=== PATIENT | male | born 1955 | race Caucasian/White ===

== ENCOUNTER 2019-04-13 23:47 | Inpatient (IN) ==
[2019-04-14] MEDS ORDERED: ZOFRAN IV ONE (00:10)
[2019-04-14] MEDS ORDERED: NS 1,000 ML IV ONE ×4 (00:10→06:38)
[2019-04-14] MEDS ORDERED: D50W SYRINGE IV ONE ×2 (00:10→06:37)
[2019-04-14] MEDS ORDERED: FLEXERIL PO ONE (00:46)
[2019-04-14 00:53] LABS: BASO# 0.01 X1000 (0.0-0.2); HEMATOCRIT 43.1 % (42.0-52.0); HEMOGLOBIN 14.1 g/dL (14.0-18.0); IMM GRAN# 0.08 X1000 (0.0-0.04); IMM GRAN% 0.3 % (0.0-0.5); LYMPH# 1.81 X1000 (1.2-3.4); LYMPH% 7.6 % (20.5-51.1); MCH 28.5 PG (27-31); MCHC 32.7 g/dL (33-37); MCV 87.2 FL (81-99); MONO# 2.22 X1000 (0.11-0.59); MONO% 9.3 % (1.7-9.3); MPV 9.7 FL (7.4-10.4); NEUT# 19.79 X1000 (1.4-6.5); NEUT% 82.8 % (42.2-75.2); PLT 317 X1000 (130-400); RBC 4.94 XMIL (4.7-6.1); RDW 14.1 % (11.5-14.5); WBC 23.91 X1000 (4.8-10.8)
[2019-04-14] MEDS ORDERED: ZOSYN 4.5 GM in NS 100 ML IV ONE (01:01)
[2019-04-14 01:33] LABS: ALBUMIN 4.7 g/dL (3.5-5.0); CREATININE 1.4 mg/dL (0.7-1.2); MAGNESIUM 1.5 mg/dL (1.5-2.7); POTASSIUM 3.3 mmol/L (3.5-5.1); TOTAL BILIRUBIN 0.3 mg/dL (0.20-1.00); TOTAL PROTEIN 8.3 g/dL (6.3-8.3)
[2019-04-14] MEDS ORDERED: NS 500 ML IV ONE (02:34)
[2019-04-14 03:50] LABS: URINE SOURCE CATH
[2019-04-14 04:11] LABS: BILIRUBIN URINE NEGATIVE (NEGATIVE); BLOOD URINE NEGATIVE (NEGATIVE); COLOR YELLOW; GLUCOSE URINE TRACE mg/dL (NEGATIVE); KETONE URINE NEGATIVE (NEGATIVE); LEUKOCYTES URINE NEGATIVE (NEGATIVE); NITRITE URINE NEGATIVE (NEGATIVE); PH URINE 5.5; PROTEIN URINE 30 mg/dL (NEGATIVE); SP GRAVITY URINE 1.036; TURBIDITY URINE CLEAR (CLEAR); UROBILINOGEN URINE NORMAL (NORMAL)
[2019-04-14 04:12] LABS: UR EPITHELIAL CELLS <10 /HPF (<10); URINE RBC <10 /HPF (<10); URINE WBC <10 /HPF (<10)
[2019-04-14 05:40] LABS: URINE BACTERIA 1+ /HPF; URINE CASTS NONE SEEN; URINE CRYSTALS NONE SEEN; URINE SMALL ROUND CELLS NONE SEEN; URINE YEAST NONE SEEN
[2019-04-14] MEDS ORDERED: ZOFRAN ODT PO PRN (06:34)
[2019-04-14] MEDS ORDERED: TYLENOL PO PRN (06:34)
--- NOTE | 2019-04-14 06:34 | PROVIDER DOCUMENTATION ---
This chart was entered by Asha Thomas Scribe, acting as scribe for Joni Wilkins MD. HPI-Abdominal Pain/GI Problem - General Chief Complaint: Low Blood Sugar Stated Complaint: Hypoglycemia Time Seen by Provider: 04/14/19 00:03 Source: patient Allergies/Adverse Reactions: Patient Allergies Allergy/AdvReac Type Severity Reaction Status Date / Time No Known Allergies Allergy Verified 01/02/17 21:51 Home Medications: Home Medication List Medication Instructions Recorded Confirmed Last Taken Type Alprazolam 1 mg PO TID PRN PRN 01/02/17 01/02/17 Unknown History Canagliflozin [Invokana] 300 mg PO DAILY 01/02/17 01/02/17 Unknown History Desvenlafaxine [Desvenlafaxine ER] 50 mg PO DAILY 01/02/17 01/02/17 Unknown History Hydrocodone/Acetaminophen [[place] 1 each PO Q4-6H PRN PRN #12 tablet 01/02/17 Unknown Rx 5-325 Tablet] Insulin Glargine,Hum.rec.anlog 55 units SQ QHS 01/02/17 01/02/17 Unknown History [Lantus] Insulin Lispro [Humalog] 40 units SQ DIRECTED 01/02/17 01/02/17 Unknown History Lisinopril 10 mg PO DAILY 01/02/17 01/02/17 Unknown History Meloxicam 15 mg PO DAILY 01/02/17 01/02/17 Unknown History Metformin HCl 2,000 mg PO DAILY 01/02/17 01/02/17 Unknown History Naproxen [Naprosyn] 500 mg PO BID 01/02/17 01/02/17 Unknown History Pantoprazole [Protonix] 40 mg PO DAILY 01/02/17 01/02/17 Unknown History Simvastatin 20 mg PO DAILY 01/02/17 01/02/17 Unknown History - History of Present Illness-ABD Nature of Presenting Problems: pt is a 63 yr old male presenting with complaint of sudden onset abdominal pain, nausea vomiting and diarrhea. pt reports onset after eating supper and taking his nightly insulin dose. pt reports vomited x 4, diarrhea x 3 in less than 1 hour, pt reports he was weak, diaphoretic and having cramping to extremities, BGL was 30 upon checking, oral glucose given by EMS and pt then brought him to ER. pt denies any sick contacts, pt and ate same thing for supper tonight. pt denies any other complaints. Abdominal Pain Onset Location: reports: generalized abdomen Pain Radiation: reports: no radiation Quality of Pain: reports: cramping Severity in ED: reports: severe Onset/Duration: reports: 1-3 hours ago, this evening Timing: reports: improving Activities at Onset: reports: light activity Exposure to sick contacts?: No Modifying Factors: improves with: nothing Associated Symptoms: reports: diaphoresis, diarrhea, dizziness, fatigue, muscle aches, nausea, shortness of breath, vomiting, weakness. denies: chest pain, genitourinary problems Last BM: this evening Dark Stools Present?: reports: none noticed Rectal Bleeding: reports: none # of Diarrhea Episodes: 3 # of Vomiting Episodes: 4 Bruising or Bleeding Gums?: No Similar Symptoms Previously?: No Recently seen or treated by another doctor?: No Review of Systems - Adult - REVIEW OF SYSTEMS - ADULT Constitutional: reports: chills, fatique. denies: fever Eyes: reports: no symptoms reported Ears, Nose, Mouth & Throat: denies: ear pain, sinus problem, throat pain Cardiovascular: denies: chest pain, palpitations, syncope Respiratory: denies: shortness of breath Gastrointestinal: reports: abdominal pain, diarrhea, nausea, vomiting Genitourinary: denies: dysuria, frequency, flank pain Musculoskeletal: reports: other (muscle cramping, all extremities). denies: back pain Integumentary: reports: no symptoms reported Neurological: denies: dizziness/vertigo, headache/migraines, syncope Psychiatric: reports: no symptoms reported Endocrine: reports: no symptoms reported Hematologic/Lymphatic: reports: no symptoms reported Allergic/Immunologic: reports: no symptoms reported All Other Systems: Reviewed and Negative Past History - Adult - PAST MEDICAL HISTORY-ADULT Review of Records: reports: Old Records Reviewed, Nursing Assessment Review, Medications Reviewed, Social history reviewed & non-contributory. Major Childhood Illnesses: reports: denies history Cardiovascular: reports: denies history Respiratory: reports: denies history Gastrointestinal: reports: denies history Obstetrical/Gynecological: reports: denies history Genitourinary: reports: denies history Musculoskeletal: reports: denies history Neurological: reports: denies history Endocrine/Immune: reports: denies history Other Conditions: reports: denies history - IMMUNIZATION STATUS Childhood Immunizations: See Nurse Assessment Flu Vaccine: See Nurse Assessment - FAMILY HISTORY Family History: reviewed, not pertinent - SOCIAL HISTORY Smoking: cigarettes, greater than 1 pack/day Provider spent 3-5 mins advising pt. on dangers of tobacco.: Discussed manners to quit use, and f/u contacts for add'l counseling. Substance Use: denies Living Situation: family Physical Exam-General - PHYSICAL EXAM-ADULT Initial Vital Signs Reviewed: Yes - CONSTITUTIONAL General Appearance: alert, no apparent distress, obese - EYES Eyes: PERRL/EOMI - HEAD, EARS, NOSE, MOUTH & THROAT HENMT: normocephalic/atraumatic, moist mucous membranes, normal ENT inspection - NECK Neck: non-tender, full range of motion, supple, normal inspection - RESPIRATORY Respiratory: chest non-tender, lungs clear, normal breath sounds, no respiratory distress, no accessory muscle use - CARDIOVASCULAR Cardiovascular: normal peripheral pulses, regular rate, rhythm, no edema - GASTROINTESTINAL (ABDOMEN) Abdominal Exam: normal bowel sounds, non tender, soft - LYMPHATIC Lymphatic: no adenopathy - MUSCULOSKELETAL Back Exam: normal inspection, no CVA tenderness, no vertebral tenderness Extremity: normal range of motion, non-tender, normal inspection - SKIN Integumentary: diaphoresis, pallor - NEUROLOGIC Neurologic: grossly normal, no motor/sensory deficits - PSYCHIATRIC Psych/Mental Status: normal mood/affect Progress - PLAN OF CARE/RESULTS Progress/Plan/Lab Results: Vital Signs - 8 hr 04/13/19 23:52 Pulse Rate 89 Respiratory Rate 18 Blood Pressure 89/58 O2 Sat by Pulse Oximetry 96 Laboratory Results - last 24 hr 04/14/19 00:02 POC Glucose 63 L Result Diagrams: 04/14/19 00:08 04/14/19 00:08 - REASSESSMENT Reassessment #1 Time Reassessed: 06:32 Status: improving (Patient responded to 30ml/kg of IVF bolus. Given zosyn for GI cause of sepsis. Given 1/2 am D50. States feels much better.) - CT/MRI 1 CT Study: Abdomen Impression: Abnormal (Per [facility]: 1. Moderate sliding hiatal hernia. 2. Bladder Wall thickening suggestive of cystitis and/or chronic partial outlet obstruciton, 3. moderate prostate enlargement) - CONSULTS/PCP/HOSPITALIST Notification #1 *Consult/PCP/Hospitalist*: Enrique paged, 4:15, 4:34, 05:01, 0600, no return of page #2 Consult: Meliton Time Discussed: 06:20 Consult Disposition: Admit Departure - Departure Date of Disposition Decision: 04/14/19 Time of Disposition Decision: 06:33 DIAGNOSIS: Nausea vomiting and diarrhea, Severe sepsis, Cystitis Hypotension Qualifiers: Hypotension type: hypotension due to hypovolemia Qualified Code(s): I95.89 - Other hypotension; E86.1 - Hypovolemia Type 2 diabetes mellitus with hypoglycemia without coma Qualifiers: Diabetes mellitus custodial insulin use: with custodial use Qualified Code(s): E11.649 - Type 2 diabetes mellitus with hypoglycemia without coma; Z79.4 - USP (current) use of insulin Disposition: ADMITTED INPATIENT 09 Certified Medical Emergency: Emergent Condition: Fair Referrals and Follow-Ups: Long Nunez MD [Primary Care Provider] - - Critical Care Note This patient required my direct & personal management of CC.: Yes Attestation - Physician/ CHELSEA Attestation Patient care was provided by Advanced Practice Provider:: No The physician spent face to face time with patient:: Yes Advanced Practice Provider documentation review:: Supervising physician onsite and consulted in the evaluation and care of this patient. The physician did have a face to face encounter with the patient. This chart was documented by the indicated scribe, (Asha Thomas Scribe) and accurately reflects the services I performed and decisions made by me, Joni Wilkins MD, as attested by the provider's signature.
[2019-04-14] MEDS: HUMULIN R (PARKWAY) SUBQ SCH ×4 (07:00→20:53)
--- NOTE | 2019-04-14 07:10 | Diag Imaging Result Doc PS360 ---
CHEST-PORTABLE - 04/14/2019 INDICATION: near syncope COMPARISON: 01/02/2017 FINDINGS: The lungs are normally expanded and clear. Heart size and mediastinal contours are normal. No pneumothorax or pleural effusion. IMPRESSION: Negative exam. Electronically signed by Anibal Aj 04/14/2019 7:08 AM
[2019-04-14] MEDS ORDERED: NS 1,000 ML ONE (07:32)
--- NOTE | 2019-04-14 09:08 | Diag Imaging Result Doc PS360 ---
CT ABD/PELVIS W/IV CONT ONLY - 04/14/2019 INDICATION: colitis COMPARISON: None FINDINGS: The lung bases are clear and the heart size is normal. There is a small to moderate hiatal hernia. There are a couple tiny left renal cysts. The liver, gallbladder, spleen, pancreas, adrenals, and kidneys are normal. No bowel obstruction or inflammation. There is questionable urinary bladder wall thickening which may suggest cystitis. Prostate and rectum are normal. There are moderate degenerative changes of the spine. No acute or suspicious bony lesion. IMPRESSION: 1. Possible cystitis. 2. Hiatal hernia. This exam was performed using automated exposure control, adjustment of mA or kV according to patient size, and/or use of iterative reconstruction technique Electronically signed by Anibal Aj 04/14/2019 9:05 AM
--- NOTE | 2019-04-14 10:52 | EKG Report ---
Test Performed on : 04/14/2019 07:42:53 AM Test Reason : near syncope Blood Pressure : / mmHG Vent. Rate : 078 BPM Atrial Rate : 078 BPM P-R Int : 146 ms QRS Dur : 086 ms QT Int : 396 ms P-R-T Axes : 062 028 145 degrees QTc Int : 451 ms Normal sinus rhythm. T wave abnormality, consider lateral ischemia Abnormal ECG No previous ECGs available Unconfirmed Result
[2019-04-14] MEDS: ZOSYN 4.5 GM in NS 100 ML IV SCH ×2 (13:41→22:54)
[2019-04-14] MEDS: FLAGYL 500 MG/NS 500 MG/100 ML IVPB IV SCH ×2 (15:17→20:52)
[2019-04-14] MEDS ORDERED: BENADRYL PO PRN (19:25)
[2019-04-14] MEDS ORDERED: XANAX PO PRN (19:25)
[2019-04-14] MEDS: LEVEMIR INSULIN *HA SUBQ SCH (20:52)
[2019-04-14] MEDS: PRISTIQ ER PO SCH (20:57)
[2019-04-14] MEDS ORDERED: FLOMAX PO SCH (21:00)
[2019-04-14] MEDS ORDERED: ZOCOR PO SCH (21:00)
[2019-04-15] MEDS: FLAGYL 500 MG/NS 500 MG/100 ML IVPB IV SCH (04:13)
[2019-04-15] MEDS: ZOSYN 4.5 GM in NS 100 ML IV SCH (05:52)
[2019-04-15] MEDS: HUMULIN R (PARKWAY) SUBQ SCH ×2 (06:30→11:38)
[2019-04-15] MEDS ORDERED: PROTONIX PO SCH (07:00)
[2019-04-15] MEDS ORDERED: ASPIRIN EC PO SCH (09:00)
[2019-04-15] MEDS ORDERED: DESVENLAFAXINE 100 MG PO SCH (09:00)
[2019-04-15] MEDS ORDERED: HYDROCHLOROTHIAZIDE PO SCH (09:00)
[2019-04-15] MEDS ORDERED: PRINIVIL PO SCH (09:00)
[2019-04-15] MEDS ORDERED: MOBIC PO SCH (09:00)
[2019-04-15] MEDS ORDERED: THERA M PLUS PO SCH (09:00)
[2019-04-15] MEDS: PRISTIQ ER PO SCH (09:39)
[2019-04-15] MEDS: LEVEMIR INSULIN *HA SUBQ SCH (09:40)
[2019-04-15 10:00] LABS: HEMATOCRIT 34.9 % (42.0-52.0); HEMOGLOBIN 11.1 g/dL (14.0-18.0); IMM GRAN# 0.01 X1000 (0.0-0.04); IMM GRAN% 0.1 % (0.0-0.5); LYMPH# 1.78 X1000 (1.2-3.4); LYMPH% 23.3 % (20.5-51.1); MCHC 31.8 g/dL (33-37); MCV 87.9 FL (81-99); MONO# 0.65 X1000 (0.11-0.59); MONO% 8.5 % (1.7-9.3); MPV 9.6 FL (7.4-10.4); NEUT# 5.19 X1000 (1.4-6.5); NEUT% 68.1 % (42.2-75.2); PLT 226 X1000 (130-400); RBC 3.97 XMIL (4.7-6.1); RDW 14.1 % (11.5-14.5); WBC 7.63 X1000 (4.8-10.8)
[2019-04-15 10:07] LABS: AGAP 16; ALBUMIN 3.6 g/dL (3.5-5.0); ALKALINE PHOSPHATASE 86 U/L (32-122); BUN 14 mg/dL (8-22); CALCIUM 8.2 mg/dL (8.8-10.2); CHLORIDE 104 mmol/L (98-107); COSMO 290; ESTIMATED GFR > 60; GLUCOSE 277 mg/dL (70-104); GOT 14 U/L (10-34); GPT 14 U/L (10-44); POTASSIUM 3.8 mmol/L (3.5-5.1); SODIUM 140 mmol/L (136-145); TCO2 21 mmol/L (25-35); TOTAL PROTEIN 6.3 g/dL (6.3-8.3)
[2019-04-15 11:17] VITALS: BP 158/70
[2019-04-17] MEDS ORDERED: GLUCOPHAGE PO SCH (09:00)
--- NOTE | 2019-05-13 09:41 | HISTORY AND PHYSICAL ---
HISTORY OF PRESENT ILLNESS: The patient is a 63-year-old patient, a regular patient of [facility], with a history of hypertension, diabetes, dyslipidemia, and depression. He presented to the emergency room with a sudden onset of abdominal pain, nausea, vomiting and diarrhea. The patient reports onset after eating supper and taking his nightly insulin dose. He reported vomiting 4 times, no blood, no food particles, diarrhea 3 times in less than an hour and became weak, diaphoretic, with cramping in his extremities. Blood sugar was 30 upon checking. Glucose was given orally by EMS per and then brought him to the ER. He denies any sick contacts. The patient and ate the same thing for supper the night of presentation. He denies any other complaints. ALLERGIES: He has no allergies. CURRENT MEDICATIONS: Invokana 300 daily, insulin glargine 40 units daily, lisinopril 10 daily, meloxicam 15 daily, metformin 2000 daily, Naprosyn (he has not taken while he is taking meloxicam), Protonix, simvastatin, alprazolam. PAST MEDICAL HISTORY: The patient denies any significant problems with cardiovascular, respiratory, gastrointestinal symptoms up until the day of presentation. He denies any urinary symptoms. He has cramps in his muscles today, and that happens occasionally when something like this happens. Diabetes has been well controlled. He has a good handle on his diabetes. SOCIAL HISTORY: He smokes more than a pack a day. REVIEW OF SYSTEMS: He has some chills and just general fatigue. He denies any fever or rigors. Eyes: Visual field acuities were unchanged. No irritation to his eyes. Ears, nose and throat: No sinusitis, pharyngitis or otitis. Cardiovascular: He denies chest pain, palpitations, syncope, edema, PAD, CAD. Respiratory: Denies shortness of breath. He is a smoker. No hemoptysis. No significant phlegm. Musculoskeletal: Muscle cramping but no joint aches. Skin was clear. No lesions or rashes. Neurologic: Symmetrical. No headaches, TIA symptoms, stroke- like symptoms or epilepsy. Psychiatric: He has had a history of depression but no significant problems currently. Endocrine: He is a diabetic with no history of thyroid disease. Diabetes is generally well controlled. Allergies: No symptoms of allergies were reported. PHYSICAL EXAMINATION: VITAL SIGNS: At the time of admission, pulse was 89, respiratory rate was 18. His blood pressure was 89/58 which is low for him. Sugar stick was 63. O2 saturation was 96%. GENERAL: No great distress. He was alert and oriented and in the moment. HEENT: Eyes were PERRL. EOMs intact. Sclerae were clear. Head was normocephalic. Ears, eyes, nose and throat with no pharyngitis, otitis or sinusitis. NECK: Supple. No bruits or lymphadenopathy. Midline trachea. Carotids were bounding. RESPIRATORY: Clear bilateral breath sounds. CARDIOVASCULAR: Regular rate and rhythm. No murmurs, gallops, clicks or rubs. ABDOMEN: Obese. Normal bowel sounds to hyper normal bowel sounds. Nontender. Generally soft. No appreciated organomegaly. LYMPHATICS: No significant lymphadenopathy. MUSCULOSKELETAL: No CVA tenderness. No particular problems with his back. SKIN: He was slightly sweaty and had pallor. No lesions were identified. NEUROLOGICAL: Grossly normal. No motor deficits. PSYCHIATRIC: He was normal. ASSESSMENT AND PLAN: He was admitted through the ER with gastroenteritis with hypotension and hypoglycemia. He was treated with fluids and symptomatic rescue. His initial database included a CT with hiatal hernia, bladder wall thickening, cystitis is suggested. Chronic partial outlet obstruction and moderate prostate enlargement. He was admitted to the floor. cc: Long Nunez MD
--- NOTE | 2019-05-13 09:47 | PROGRESS NOTE ---
DATE: 04/14/2019 OBJECTIVE: Vital signs: Pulse is in the mid to low 80s, respiratory rate 18, blood pressure is 100/57 to 97/60, being fluid resuscitated. DIAGNOSTIC DATA: From 04/14/2019 reveals a white count of 23,910, hematocrit 43 with normochromic normocytic indices. Platelet count was normal. Sodium was 144, potassium was 3.3, chloride 101, CO2 was 23, BUN was 23, creatinine 1.4, anion gap 20. Estimated GFR was 51. Glucose 87. Calcium 10, magnesium 1.5, bilirubin 0.3, AST is 18, ALT is 19, alkaline phosphatase 126. CK is 151. Troponin I series was 14. Total protein 8.3, albumin 4.7, globulin 4. Urinalysis with 1.036 specific gravity, otherwise negative. Chest x-ray from 04/14/2019 showed lungs were well expanded, clear. Heart size normal. Mediastinal contours are normal. No pneumo. No pleural effusions. Abdominopelvic CT showed the lung bases were clear. Heart size was normal. There was small to moderate hiatal hernia. There were a couple of tiny left renal cysts. The liver, gallbladder, spleen, pancreas, adrenals and kidneys were normal. No bowel obstruction or inflammation. There was some questionable bladder wall thickening. Prostate and rectum were normal. There were moderate degenerative changes of the spine. Impression was hiatal hernia, possible cystitis. The patient's EKG on that same day showed heart rate was 78, intervals were normal, normal sinus rhythm. Some T wave abnormalities. Consider lateral ischemia. He was continued on his fluid resuscitation which included his NovoLog insulin 55 units subcutaneously with meals, fluid resuscitation with normal saline, started on piperacillin while we were studying him early on in the stay. Treated symptomatically with Zofran. He seemed to get significantly better. cc: Long Nunez MD
--- NOTE | 2019-05-13 09:49 | DISCHARGE SUMMARY ---
ADMISSION DATE: 04/14/2019 DISCHARGE DATE: 04/15/2019 This is a regular patient of [facility] with hypertension, diabetes, dyslipidemia, depression. Admitted with explosive onset of vomiting and diarrhea, felt to have food poisoning. Had some hypoglycemic sugars, a little diaphoretic. He was resuscitated with symptomatic treatment and fluids. Continued on his diabetic regimen. He improved promptly. In his database, he had some blood cultures that were negative. The CT of his abdomen was unrevealing. Laboratory work was negative other than the low blood sugars. He was improved almost within the second day. We stopped all the antibiotics and discharged him as acute food poisoning, diabetes, hypertension, dyslipidemia. He will follow up in the office. cc: Long Nunez MD
== END 2019-04-15 12:57 | disposition home or self-care (01) | DRG 392 ==
LOC: P.ED 23:47 → P.EDIPHOLD 04-14 08:40 → P.MEDSURG 04-14 13:49
PROVIDERS: ADMIT Internal Medicine; ATTEND Internal Medicine